=== PATIENT | male | born 1950 | race Caucasian/White ===

== ENCOUNTER → 2024-09-12 07:07 | Outpatient (REF) | payer OTHER, SELFPAY | LOC: DHCBC/DCA 07:07 | PROVIDERS: ATTENDING PHYSICIAN Internal Medicine Cardiovascular Disease; FAMILY PHYSICIAN Internal Medicine | DX: I25.10 Atherosclerotic heart disease of native coronary artery without angina pectoris (principal) | CPT/HCPCS: 78452; 93017; A9500; J2785 ==